=== PATIENT | male | born 1980 | race Caucasian/White ===

== ENCOUNTER 2017-06-11 15:24 | Emergency (ER) | payer OTHER ==
[~2017-06-11] VITALS: Ht 185.4 cm; Wt 58.3 kg
[~2017-06-11 15:24] MED LIST: BENADRYL25 MG PO; LOTRIMIN AF24 GM TP; PEN-VEE K,VEET500 MG PO; PERCOCET 5/31 TABLET PO; VICODIN 5-3001 EACH PO; ZOFRAN4 MG PO
[2017-06-11 15:57] LABS: HEMATOCRIT 52.1 % (38.0-50.0); MCH 29.6 PG (29.0-34.0); MCHC 33.2 G/DL (30.0-36.0); MCV 89.1 FL (86-99); MEAN PLAT.VOLUME 9.8 uM^3 (9.0-12.4); PLATELET COUNT 160 K/uL (156-360); RBC DIS.WIDTH-CV 13.2 % (11.8-14.6); RBC DIS.WIDTH-SD 43.3 % (39-53); RED BLOOD COUNT 5.85 M/uL (4.00-5.50); WHITE BLOOD COUNT 5.5 K/uL (4.1-10.2)
[2017-06-11 16:12] LABS: CHLORIDE 106 mEq/L (99-109); POTASSIUM 3.8 mEq/L (3.7-5.4); SODIUM 142 mEq/L (136-147)
[2017-06-11 16:14] LABS: GLUCOSE 97 mg/dL (70-99)
[2017-06-11 16:15] LABS: ANION GAP 12 MEQ/L (2-14)
[2017-06-11 16:16] LABS: TOTAL BILIRUBIN 0.7 mg/dL (0.0-1.0)
[2017-06-11 16:17] LABS: ALKALINE PHOSPHATASE 105 IU/L (3-129); GFR ESTIMATE (CALCULATED) > 59 mL/min/
[2017-06-11 16:18] LABS: UREA NITROGEN (BUN) 10 mg/dL (9-23)
[2017-06-11] MEDS ORDERED: CIPRO500 MG PO (19:53)
[2017-06-11 20:03] VITALS: BP 123/73
== END 2017-06-11 20:08 | disposition home or self-care (01) ==
LOC: EME 15:24
DX: N39.0 Urinary tract infection, site not specified (principal); R91.8 Other nonspecific abnormal finding of lung field; Z87.442 Personal history of urinary calculi; F17.200 Nicotine dependence, unspecified, uncomplicated
CPT/HCPCS: 74176; 80053; 81003; 85027; 99281; 99284; J1885

== ENCOUNTER 2017-06-14 10:48 | Emergency (ER) | payer OTHER ==
[~2017-06-14] VITALS: Ht 185.4 cm; Wt 59.2 kg
[~2017-06-14 10:48] MED LIST changes: +CIPRO500 MG PO
[2017-06-14 11:55] LABS: HEMATOCRIT 49.1 % (38.0-50.0); MCH 29.9 PG (29.0-34.0); MCHC 33.2 G/DL (30.0-36.0); MCV 90.1 FL (86-99); MEAN PLAT.VOLUME 10.2 uM^3 (9.0-12.4); PLATELET COUNT 166 K/uL (156-360); RBC DIS.WIDTH-CV 13.2 % (11.8-14.6); RBC DIS.WIDTH-SD 43.6 % (39-53); RED BLOOD COUNT 5.45 M/uL (4.00-5.50); WHITE BLOOD COUNT 6.7 K/uL (4.1-10.2)
[2017-06-14 12:10] LABS: CHLORIDE 107 mEq/L (99-109); SODIUM 141 mEq/L (136-147)
[2017-06-14 12:12] LABS: GLUCOSE 101 mg/dL (70-99)
[2017-06-14 12:13] LABS: ANION GAP 7 MEQ/L (2-14)
[2017-06-14 12:16] LABS: GFR ESTIMATE (CALCULATED) > 59 mL/min/; UREA NITROGEN (BUN) 7 mg/dL (9-23)
[2017-06-14 12:51] LABS: ADD MIUA? NO; BILIRUBIN NEGATIVE; BLOOD NEGATIVE; COLOR STRAW ((YELLOW)); GLUCOSE (STRIP) NEGATIVE; KETONES NEGATIVE; LEUKOCYTES NEGATIVE; NITRITE NEGATIVE; PROTEIN (STRIP) NEGATIVE; SPECIFIC GRAVITY 1.004 (1.000-1.030); UCUL ADDED? NO; UROBILINOGEN 0.2 MG/DL (0.2-1.0)
[2017-06-14 14:11] VITALS: BP 128/82
== END 2017-06-14 14:14 | disposition home or self-care (01) ==
LOC: EME 10:48
DX: R10.9 Unspecified abdominal pain (principal); Z87.442 Personal history of urinary calculi; Z87.440 Personal history of urinary (tract) infections; Z88.6 Allergy status to analgesic agent; F17.200 Nicotine dependence, unspecified, uncomplicated
CPT/HCPCS: 74000; 80048; 81003; 85027; 99281; 99284; J3010; J7030

== ENCOUNTER 2017-06-17 07:58 | Emergency (ER) | payer OTHER ==
[~2017-06-17] VITALS: Ht 185.4 cm; Wt 60.5 kg
[2017-06-17 08:27] LABS: HEMATOCRIT 50.5 % (38.0-50.0); MCH 29.5 PG (29.0-34.0); MCHC 32.5 G/DL (30.0-36.0); MCV 90.8 FL (86-99); MEAN PLAT.VOLUME 9.9 uM^3 (9.0-12.4); PLATELET COUNT 160 K/uL (156-360); RBC DIS.WIDTH-CV 13.4 % (11.8-14.6); RED BLOOD COUNT 5.56 M/uL (4.00-5.50); WHITE BLOOD COUNT 5.4 K/uL (4.1-10.2)
[2017-06-17 08:40] LABS: CHLORIDE 102 mEq/L (99-109); POTASSIUM 3.6 mEq/L (3.7-5.4); SODIUM 138 mEq/L (136-147)
[2017-06-17 08:43] LABS: GLUCOSE 83 mg/dL (70-99)
[2017-06-17 08:44] LABS: ANION GAP 11 MEQ/L (2-14); TOTAL BILIRUBIN 0.6 mg/dL (0.0-1.0)
[2017-06-17 08:46] LABS: ALKALINE PHOSPHATASE 103 IU/L (3-129); GFR ESTIMATE (CALCULATED) > 59 mL/min/
[2017-06-17 08:47] LABS: UREA NITROGEN (BUN) 6 mg/dL (9-23)
[2017-06-17 08:50] LABS: LIPASE 11 U/L (1.0-51.0)
[2017-06-17 09:54] LABS: ADD MIUA? NO; BILIRUBIN NEGATIVE; BLOOD NEGATIVE; COLOR COLORLESS ((YELLOW)); GLUCOSE (STRIP) NEGATIVE; KETONES NEGATIVE; LEUKOCYTES NEGATIVE; NITRITE NEGATIVE; PROTEIN (STRIP) NEGATIVE; SPECIFIC GRAVITY 1.002 (1.000-1.030); UCUL ADDED? NO; UROBILINOGEN 0.2 MG/DL (0.2-1.0)
[2017-06-17] MEDS ORDERED: FLOMAX0.4 MG PO (10:44)
[2017-06-17] MEDS ORDERED: PERCOCET 5/31 TABLET PO (10:44)
[2017-06-17 11:14] VITALS: BP 102/56
== END 2017-06-17 11:20 | disposition home or self-care (01) ==
LOC: EME 07:58
PROVIDERS: Nurse Practitioner Family
DX: N20.0 Calculus of kidney (principal); R91.8 Other nonspecific abnormal finding of lung field; Z87.442 Personal history of urinary calculi; F17.200 Nicotine dependence, unspecified, uncomplicated; Z88.6 Allergy status to analgesic agent; Z88.2 Allergy status to sulfonamides
CPT/HCPCS: 74176; 80053; 81003; 83690; 85027; 99281; 99285; J2405; J3010; J7030

== ENCOUNTER 2017-08-03 09:11 | Emergency (ER) | payer OTHER ==
[~2017-08-03] VITALS: Ht 185.4 cm; Wt 60.2 kg
[~2017-08-03 09:11] MED LIST changes: +FLOMAX0.4 MG PO
[2017-08-03 09:59] LABS: EOSINOPHIL (%) 0.2 % (0-5); HEMATOCRIT 49.5 % (38.0-50.0); IMMATURE GRANULOCYTE (%) 0.5 % (0.0-0.7); INSTRUMENT ABS NEUTROPHIL CT 3.5 K/uL; LYMPHOCYTE COUNT 1.3 K/uL (1.0-2.8); MCH 29.7 PG (29.0-34.0); MCHC 32.9 G/DL (30.0-36.0); MCV 90.3 FL (86-99); MEAN PLAT.VOLUME 9.6 uM^3 (9.0-12.4); MONOCYTE (%) 9.9 % (3-12); MONOCYTE COUNT 0.5 K/uL (0-0.8); NEUTROPHIL (%) 64.5 % (45-76); NEUTROPHIL COUNT 3.5 K/uL (1.8-6.4); PLATELET COUNT 144 K/uL (156-360); RBC DIS.WIDTH-CV 13.2 % (11.8-14.6); RBC DIS.WIDTH-SD 44.4 % (39-53); RED BLOOD COUNT 5.48 M/uL (4.00-5.50); WHITE BLOOD COUNT 5.5 K/uL (4.1-10.2)
[2017-08-03 10:08] LABS: CHLORIDE 108 mEq/L (99-109); POTASSIUM 3.6 mEq/L (3.7-5.4); SODIUM 142 mEq/L (136-147)
[2017-08-03 10:09] LABS: GLUCOSE 73 mg/dL (70-99)
[2017-08-03 10:11] LABS: ANION GAP 12 MEQ/L (2-14)
[2017-08-03 10:13] LABS: GFR ESTIMATE (CALCULATED) > 59 mL/min/
[2017-08-03 10:14] LABS: UREA NITROGEN (BUN) 7 mg/dL (9-23)
[2017-08-03 11:35] LABS: ADD MIUA? NO; BILIRUBIN NEGATIVE; BLOOD NEGATIVE; COLOR YELLOW ((YELLOW)); GLUCOSE (STRIP) NEGATIVE; KETONES NEGATIVE; LEUKOCYTES NEGATIVE; NITRITE NEGATIVE; PROTEIN (STRIP) NEGATIVE; SPECIFIC GRAVITY 1.006 (1.000-1.030); UROBILINOGEN 0.2 MG/DL (0.2-1.0)
[2017-08-03] MEDS ORDERED: ZOFRAN4 MG PO (12:35)
[2017-08-03] MEDS ORDERED: PERCOCET 5/31 TABLET PO (12:35)
[2017-08-03 12:45] VITALS: BP 114/81
== END 2017-08-03 12:45 | disposition home or self-care (01) ==
LOC: EME 09:11
PROVIDERS: Emergency Medicine
DX: R10.9 Unspecified abdominal pain (principal); Z87.442 Personal history of urinary calculi; G89.29 Other chronic pain; F17.200 Nicotine dependence, unspecified, uncomplicated; Z88.8 Allergy status to other drugs, medicaments and biological substances
CPT/HCPCS: 74176; 80048; 81003; 85025; 99281; 99285; J2405; J3010; J7030